=== PATIENT | female | born 1995 ===

== ENCOUNTER 2016-07-04 20:43 | Emergency (ER) | payer MEDICAID ==
[2016-07-04 21:01] VITALS: BMI 24.2
[2016-07-04 21:42] LABS: RBC URINE 1 /hpf (0-3); URINE BACTERIA RARE (<OCC); URINE BILIRUBIN NEGATIVE (NEGATIVE); URINE BLOOD NEGATIVE (NEGATIVE); URINE COLOR Yellow (YELLOW); URINE GLUCOSE (UA) NORMAL (Normal); URINE KETONE NEGATIVE (NEGATIVE); URINE LEUKOCYTE ESTERASE TRACE Leu/uL (Negative); URINE PROTEIN NEGATIVE (NEGATIVE); URINE UROBILINOGEN NORMAL mg/dL (0.2-1.0); WBC URINE 4 /hpf (0-5)
--- NOTE | 2016-07-04 23:15 | OBHP ---
Datetime: 07/04/2016 21:32 IP Adm Impression: , intrauterine ; No Active Labor Admit Comment, IP Provider: chief complaint-abdominal pain HPI 21 y/o at 30.1 wga with c/o lower abdominal discomfort for last 3-4 days.states that she has a lot of stress in her life.She is having issues with he rliving situation.At the same tyiem her boyfriend does not work and she does want to live with her mother and prefers to be independent.She g oes to medical assisting school and there she was advised by her friend to come to hospital or see he r doctor for abdominal pain.she denies any vaginal bleeding or loss of fluid.Patient deneis nausea, v omiting, headache, chest pain,shortness of breath, numbness or tingling in hands and feet.Patient den ies feeling light headed or dizzy.Has only 2 bottles of water today. patient states that she feels stressed with her current situation. she denies any suicidal or homi cidal ideation cousre uncomplicated; care with dr rizo PMH denies PSH denies OBGYN HX Social hx denies tobacco,alcohol or illicit drug use Exam see exam section A/P 21 y/o at 30.1 wga by stated lmp and hoang with c/o abdominal pain.cervix closed.nonreactiv e -check ua -ob ultrasound stat 11pm patient returned from ultrasound records from [facility] reviewed in [employer].noted to yessenia hx of depression and a nxiety.?bipolar patient on being questioned about the hx states that her depression is udner cntrol and she is not on meds as she is .[facility] spaul[facility] Ob ultrasound chastity 7.84; gestationala ge 27 weeks and 5 days.efw 1008 grams( Vrad reading) A/P Patient at 30.1 wga with c/o abdominal pain.Ultrasound today shows subjective low fluids and g rowth which is lagging behind. Findinsg discussed with patient.patient concerned and wants to go to medical cetre for evaluation and second opinion.Discussed that another opinion by perinatologist is recommended and would recommen d evaluation at [facility] in [place]. Patient prefers to go to [facility] and hence [facility] called and case discussed with dr lopez, the covering attending , who refused transfer.Patient does not want to wait and wants to sign out against medical advice so she can heerself go to [facility]discussed risks associated with signing out against medical advice and discontinuing monitoring ins etting of subjective low fluids.patient voiecs udnerstanding the risks and wants to leave.Family here to pick the patient up. Pelvic Type - PN: Adequate Extremities - PN: Normal Abdomen - PN: Normal Back - PN: Normal Lungs - PN: Normal Heart - PN: Normal Neurologic - PN: Normal General - PN: Normal FHR - Baseline A Provider: 140 Contraction Comments Provider: none Comments, ACOG Physical Exam: abdomensoft; or rebound or guarding or rigidity pelvic vulva no lesions vagina no lesions cervix closed uterus gravid adnexa no adnexal tenderness Gestation - Est Wks by US: 30.1 IP Hx Assessment: The History has been Reviewed and is Current EGA AdmitDate IP: 30.1 Vital Signs Provider: Reviewed IP Chief Complaint: Maternal discomfort NICHD Variability Prov Fetus A: Moderate 6-25bpm NICHD Decel Fetus A IP Provider: None Dilatation, Provider: 0 Effacement, Provider: thick Station, Provider: high Genitourinary Exam: Normal DTRs - PN: Normal
--- NOTE | 2016-07-05 11:08 | US ---
Ultrasound OB limited/ biophysical profile Indication: Abdominal pain Technique: Grayscale, color flow, and M-mode sonographic images of the single live intrauterine were obtained. Comparison: None available Findings: There is a single live intrauterine gestation. The fetus is in cephalic position. The placenta is posterior. There is no evidence of previa. There is a normal amount of amniotic fluid. The WYATT measures 7.84 cm. M-mode imaging demonstrates a heart rate to be 143.4 beats per min. Estimated weight 1008 g +/-151.3 g movements 2/2 breathing 2/2 tone 2/2 Amniotic fluid 2/2 Total score impression: 11/07 Impression: Oligohydramnios. Biophysical profile of 8 out of 8. Single live intrauterine in cephalic position with a heart rate of 143.4 beats per min. The study was performed for the emergent evaluation of pain, and the whole anatomic survey of the fetus was not performed. This should be performed on an outpatient elective basis as clinically warranted. Preliminary impression was provided by [facility].
== END 2016-07-04 23:08 | disposition left against medical advice (07) ==
LOC: C.EROB 20:43
DX: O26.892 Other specified pregnancy related conditions, second trimester (principal); R10.9 Unspecified abdominal pain; Z3A.20 20 weeks gestation of pregnancy

== ENCOUNTER 2017-01-05 21:00 | Emergency (ER) | payer MEDICAID ==
[2017-01-05 21:00] VITALS: BMI 24.2
[2017-01-05 21:14] VITALS: RESP 18
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
[2017-01-06 01:10] VITALS: BP 114/68; PULSE 88; TEMP 98.1; O2SAT 97
== END 2017-01-05 23:30 | disposition home or self-care (01) ==
LOC: C.ER 21:00
DX: B86 Scabies (principal); S70.12XA Contusion of left thigh, initial encounter; S70.11XA Contusion of right thigh, initial encounter; Y04.0XXA Assault by unarmed brawl or fight, initial encounter